=== PATIENT | male | born 1950 | race Caucasian/White ===

== ENCOUNTER 2018-03-25 10:33 | Emergency (ER) | payer MEDICARE, OTHER ==
[2018-03-25 11:56] VITALS: BP 170/87
--- NOTE | 2018-03-25 12:37 | UC ---
Respiratory Complaint HPI - HPI Summary HPI Summary: 67-year-old male comes in with complaint of shortness of breath and wheezing. He has a history of asthma. He lives in [place] and is traveling here over the summer. [place] his asthma is well-controlled. His asthma has been getting progressively worse the longer he is away from [place]. He is using his nebulizer up to 3 times a day now when in [place] he rarely uses it more than once a week. No fevers he is having sputum production. No edema no chest pain. - History of Current Complaint Chief Complaint: UCRespiratory Stated Complaint: COUGH CONGESTION Time Seen by Provider: 03/25/18 11:43 Pain Intensity: 0 Pain Scale Used: 0-10 Numeric - Allergies/Home Medications Allergies/Adverse Reactions: Allergies Allergy/AdvReac Type Severity Reaction Status Date / Time No Known Allergies Allergy Verified 03/25/18 11:45 Home Medications: Home Medications Albuterol 2.5MG/3ML (0.083%)* [Ventolin 2.5 MG/3 ML NEB.ARMINDA*] 2.5 mg INH Q6H PRN 03/25/18 [History Confirmed 03/25/18] Aspirin 81 mg CHEW TAB* [Aspirin Low Dose TAB*] 81 mg PO DAILY 03/25/18 [ History Confirmed 03/25/18] Budesonide/Formote 160/4.5(NF) [Symbicort 160/4.5 (NF)] 1 puff INH DAILY [History Confirmed 03/25/18] Dulaglutide [Trulicity] 1.5 mg SQ WEEKLY 03/25/18 [History Confirmed 03/25/18] Montelukast Sodium TAB* [Singulair 10 MG TAB*] 10 mg PO DAILY 03/25/18 [History Confirmed 03/25/18] Pravastatin Sodium 20 mg PO DAILY 03/25/18 [History Confirmed 03/25/18] Telmisartan/Hydrochlorothiazid [Micardis Hct 80-12.5 mg] 1 tab PO DAILY [History Confirmed 03/25/18] metFORMIN* [Glucophage 500 MG TAB *] 1,000 mg PO 0800,1700 03/25/18 [History Confirmed 03/25/18] PMH/Surg Hx/FS Hx/Imm Hx Endocrine History: Diabetes Respiratory History: Asthma - Surgical History Surgical History: Yes Surgery Procedure, Year, and Place: hip replacement - Family History Known Family History: Positive: Cardiac Disease Family History: LACERATIONS - Social History Alcohol Use: None Substance Use Type: None Smoking Status (MU): Former Smoker When Did the Patient Quit Smoking/Using Tobacco: 25 years ago Review of Systems Constitutional: Negative Skin: Negative Eyes: Negative ENT: Negative Respiratory: Shortness Of Breath, Cough, Other - Sputum production Cardiovascular: Negative Gastrointestinal: Negative Musculoskeletal: Negative Neurological: Negative Psychological: Negative Is Patient Immunocompromised?: No All Other Systems Reviewed And Are Negative: Yes Physical Exam Triage Information Reviewed: Yes Appearance: Well-Appearing, No Pain Distress, Well-Nourished Vital Signs: Initial Vital Signs Temp 98.7 F 03/25/18 11:49 Pulse 62 03/25/18 11:49 Resp 18 03/25/18 11:49 BP 170/87 03/25/18 11:49 Pulse Ox 96 03/25/18 11:49 Vital Signs Reviewed: Yes Eye Exam: Normal ENT: Positive: Normal ENT inspection, Pharynx normal Neck exam: Normal Neck: Positive: Supple Respiratory: Positive: Wheezing - Bilateral Cardiovascular: Positive: RRR Musculoskeletal: Positive: Strength Intact, No Edema Neurological Exam: Normal Neurological: Positive: Alert Psychological Exam: Normal Skin Exam: Normal UC Diagnostic Evaluation - Laboratory O2 Sat by Pulse Oximetry: 96 Respiratory Course/Dx - Course Course Of Treatment: GIVEN Prescription for Advair Diskus and oral prednisone and azithromycin. He will start with the prednisone and then transition to the inhaled steroid. Follow-up with primary care doctor reevaluation sooner if worse. - Differential Dx/Diagnosis Provider Diagnoses: Asthma exacerbation. BRONCHITIS Discharge - Sign-Out/Discharge Documenting (check all that apply): Patient Departure All imaging exams completed and their final reports reviewed: No Studies - Discharge Plan Condition: Stable Disposition: HOME Prescriptions: Azithromyxin RICKY (NF) [Z-Ricky (Zithromax) 250 mg tabs #6] 2 tab PO .TODAY, THEN 1 DAILY #6 tab Fluticasone-Salmeterol 250-50* [Advair Diskus 250-50*] 1 puff INH BID #1 diskus predniSONE TAB* [Deltasone 20 MG TAB*] 40 mg PO DAILY #20 tab Patient Education Materials: Asthma (ED), Acute Bronchitis (ED) Referrals: [facility] [Outside] Additional Instructions: FOLLOW UP WITH YOUR DOCTOR. GET RECHECKED FOR ANY WORSENING OF YOUR CONDITION OR QUESTIONS OR CONCERNS. - Billing Disposition and Condition Condition: STABLE Disposition: Home
== END 2018-03-25 12:18 | disposition home or self-care (01) ==
LOC: UCCORT 10:33
DX: J45.901 Unspecified asthma with (acute) exacerbation (principal); E11.9 Type 2 diabetes mellitus without complications; Z79.84 Long term (current) use of oral hypoglycemic drugs; Z87.891 Personal history of nicotine dependence
CPT/HCPCS: 99202; G0463